=== PATIENT | female | born 1950 ===

== ENCOUNTER 2024-07-10 08:32 | Day surgery (SDC) | payer MEDICARE ==
[~2024-07-10 08:32] MED LIST: LIDOCAINE 1% (10MG/ML) FOR IV START INTRADERMA PRN
[2024-07-10 09:07] LABS: Glucose,Whole Blood 122 mg/dL (70-110)
[2024-07-10] MEDS: LACTATED RINGERS 1,000 ML IV SCH (09:07)
[2024-07-10] MEDS: IV FLUID CONTINUATION 1,000 ML IV ONE (09:07)
[2024-07-10] MEDS: ONDANSETRON 4 MG/2 ML VIAL IVP PRN (09:18)
[2024-07-10] MEDS: FAMOTIDINE 20 MG/2 ML VIAL IV PRN (09:18)
[2024-07-10] MEDS: MIDAZOLAM 2 MG/2 ML VIAL IV ONE (09:21)
[2024-07-10] MEDS: OXYMETAZOLINE 0.05% NASL SPRAY 1 SPRAY BOTTLE EA NOSTRIL PRN (09:25)
[2024-07-10] MEDS: LIDOCAINE 1%-EPI 1:100,000 20 ML VIAL SUBMUCOSAL ONE ×3 (09:38→09:58)
[2024-07-10] MEDS ORDERED: PROPOFOL 10 MG/ML 20 ML VIAL IV ONE (09:45)
[2024-07-10] MEDS ORDERED: fentaNYL (PF) 50 MCG/ML 2 ML AMP ONE (09:45)
[2024-07-10] MEDS ORDERED: LIDOCAINE 1% INJ 10MG/ML (20 ML MDV) ONE (09:45)
[2024-07-10] MEDS ORDERED: MIDAZOLAM 2 MG/2 ML VIAL ONE (09:45)
[2024-07-10] MEDS ORDERED: SUCCINYLCHOLINE CHLORIDE 200 MG/10 ML VIAL IV ONE (09:45)
[2024-07-10] MEDS: BACITRACIN ZINC 500 UNIT/GM OINT 28.4 GM TUBE TOPICAL ONE (10:01)
--- NOTE | 2024-07-10 10:32 | P.OP ---
Date of Procedure: 07/10/24 Preoperative Diagnosis: deviated nasal septum Inferior turbinate hypertrophy Postoperative Diagnosis: same Procedure(s) Performed: Septoplasty Outfracture and submucous resection of the turbinates Anesthesia: MARIYAA Surgeon: Richi Villalpando Estimated Blood Loss (ml): 5 Pathology: other (nasal septal bone and cartilage) Condition: stable Disposition: PACU Indications for Procedure: this is a 74 show white male who had nasal trauma couple of years ago and has had difficulties with nasal airway obstruction persistently especially on the right Operative Findings: nasal septum deviated to the right obstructing approximately 90% the inferior turbinates are hypertrophied bilaterally Description of Procedure: DESCRIPTION OF PROCEDURE: The patient was brought to the operative suite, placed in the supine position. The patient underwent induction of general anesthesia with oral endotracheal intubation without difficulty. The patient was prepped and draped in the usual aseptic fashion. 1% lidocaine with 1:100,000 epinephrine was infused submucosally on both sides of the nasal septum. While this was taking vasoconstrictive effect, the inferior turbinates were infractured with a [place] elevator. Partial submucous resection of the inferior turbinates was performed with Coblation device ablating a portion of the submucosal soft tissue. The inferior turbinates were then outfractured with a [place] elevator. A left hemitransfixion incision was then made through the mucoperichondrial. Mucoperiosteal flap on the left elevated. Bony cartilaginous junction was disarticulated and mucoperiosteal flap on the right was elevated. Bony nasoseptal deformity were removed with Harjinder forceps and an inferior cartilaginous strip was removed, leaving a full 1.5 cm caudal strut. Checking intranasally, this corrected the nasal septal deformities and the hemitransfixion incision was closed with running 4-0 chromic suture. The bilateral [place] airway splints coated in bacitracin ointment were placed in the nasal cavities and sutured transseptally with 4-0 nylon suture. The patient was then suctioned in an orogastric fashion. The patient was allowed to emerge from general anesthesia, having tolerated the procedure well and was extubated in the operating suite, transferred to postoperative recovery area in satisfactory condition.
[2024-07-10 10:41] VITALS: TEMP 97.9
[2024-07-10] MEDS: fentaNYL (PF) 50 MCG/ML 2 ML AMP IV PRN (11:11)
[2024-07-10] MEDS: ACETAMINOPHEN TAB 500 MG TAB PO STA (12:26)
[2024-07-10 12:29] VITALS: RESP 18
[2024-07-10 12:51] VITALS: BP 174/64; PULSE 70
== END 2024-07-10 13:18 | disposition home or self-care (01) ==
LOC: OR 08:32
PROVIDERS: ATTEND Otolaryngology
DX: J34.2 Deviated nasal septum (principal); J34.3 Hypertrophy of nasal turbinates; I10 Essential (primary) hypertension; E11.9 Type 2 diabetes mellitus without complications; E07.9 Disorder of thyroid, unspecified; Z79.890 Hormone replacement therapy; Z79.899 Other long term (current) drug therapy
CPT/HCPCS: 84132; 88300